=== PATIENT | female | born 1990 | race Caucasian/White ===

== ENCOUNTER 2019-01-05 10:37 | Emergency (ER) | payer SELFPAY ==
[~2019-01-05] VITALS: Ht 147.3 cm; Wt 59.0 kg
[2019-01-05 10:40] VITALS: Ht 147.3 cm; Wt 59.0 kg
[2019-01-05] MEDS ORDERED: ONDANSETRON (ODT) 4 MG TAB ODT STA (11:12)
[2019-01-05] MEDS ORDERED: HYDROCODONE/APAP (5/325) TAB PO ONE (11:30)
[2019-01-05] MEDS ORDERED: OXYC-279 PO (12:36)
[2019-01-05] MEDS ORDERED: NAPR-985 PO (12:36)
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
== END 2019-01-05 13:09 | disposition home or self-care (01) ==
LOC: FTE 10:37
DX: S82.102A Unspecified fracture of upper end of left tibia, initial encounter for closed fracture (principal); V00.831A Fall from motorized mobility scooter, initial encounter; Y92.9 Unspecified place or not applicable
CPT/HCPCS: 73562